=== PATIENT | female | born 1955 | race Caucasian/White ===

== ENCOUNTER 2019-08-09 10:18 | Emergency (ER) | payer MEDICARE, OTHER ==
[~2019-08-09] VITALS: Ht 165.1 cm; Wt 59.1 kg
[~2019-08-09 10:18] MED LIST: DICY10CA59 PO
[2019-08-09 10:56] LABS: BASOPHILS # (AUTO) 0.1 X10'3 (0-0.2); BASOPHILS % (AUTO) 1.4 % (0-1); EOSINOPHILS # (AUTO) 0.3 X10'3 (0-0.9); HEMATOCRIT 41.2 % (35.0-45.0); HEMOGLOBIN 14.2 g/dl (12.0-16.0); LYMPHOCYTES % (AUTO) 38.3 % (21-51); MEAN CORPUSCULAR HGB CONC 34.5 g/dL (33.0-36.5); MEAN CORPUSCULAR VOLUME 98.4 FL (78-98); MEAN PLATELET VOLUME 8.1 FL (7.4-10.4); MONOCYTES % (AUTO) 12.4 % (2-12); NEUTROPHILS # (AUTO) 3.4 X10'3 (1.8-7.7); NEUTROPHILS % (AUTO) 43.9 % (42-75); PLATELET COUNT 265 X10'3 (140-440); RED BLOOD COUNT 4.18 X10'6 (4.20-5.60); RED CELL DISTRIBUTION WIDTH 13.6 % (11.5-14.5); WHITE BLOOD COUNT 7.7 X10'3 (4.5-11.0)
[2019-08-09 11:11] LABS: ALANINE AMINOTRANSFERASE 19 U/L (12-78); ALBUMIN 4.2 G/DL (3.4-5.0); ALBUMIN/GLOBULIN RATIO 1.1 (1.1-1.5); ALKALINE PHOSPHATASE 88 IU/L (46-116); ANION GAP 9 (8-16); ASPARTATE AMINO TRANSFERASE 19 U/L (10-37); BILIRUBIN,TOTAL 0.6 MG/DL (0.1-1.0); BLOOD UREA NITROGEN 11 MG/DL (7-18); BUN/CREATININE RATIO 15.7 (6.6-38.0); CHLORIDE 100 MMOL/L (99-107); GLUCOSE 102 MG/DL (70-104); POTASSIUM 3.6 MMOL/L (3.5-5.1); SODIUM 135 MMOL/L (135-145); TOTAL CARBON DIOXIDE 25.9 MMOL/L (24-32); eGFR 84 ML/MIN
[2019-08-09] MEDS ORDERED: ketorolac trometh. 30mg/ml inj. IV ONE (11:20)
[2019-08-09] MEDS ORDERED: normal saline 1000ml 1,000 ML IV ONE (11:20)
[2019-08-09] MEDS ORDERED: cyclobenzaprine 10mg tablet PO ONE (11:20)
[2019-08-09] MEDS ORDERED: ketorolac tromethamine 15mg/ml inj. IV ONE (11:30)
[2019-08-09] MEDS ORDERED: iohexol 350MG/ML 100ml bottle IV ONE (11:45)
[2019-08-09 12:43] VITALS: BP 179/93
[2019-08-09] MEDS ORDERED: LIDOcaine 5% patch TP SCH (13:00)
== END 2019-08-09 13:27 | disposition home or self-care (01) ==
LOC: ER 10:19
DX: M54.9 Dorsalgia, unspecified (principal); Z90.49 Acquired absence of other specified parts of digestive tract; Z90.710 Acquired absence of both cervix and uterus; Z98.890 Other specified postprocedural states; Z88.0 Allergy status to penicillin; Z88.1 Allergy status to other antibiotic agents; Z79.899 Other long term (current) drug therapy
CPT/HCPCS: 36415; 71045; 71275; 80053; 84484; 85025; 93005; 96374; 99285; J1885; J7030; Q9967

== ENCOUNTER 2021-08-19 17:33 | Emergency (ER) | payer MEDICARE, OTHER ==
[~2021-08-19] VITALS: Ht 165.1 cm; Wt 64.5 kg
[2021-08-19 17:48] VITALS: BP 177/95
== END 2021-08-19 18:12 | disposition home or self-care (01) ==
LOC: ER 17:34
DX: I10 Essential (primary) hypertension (principal); Z90.49 Acquired absence of other specified parts of digestive tract; Z90.710 Acquired absence of both cervix and uterus; Z98.890 Other specified postprocedural states; Z72.89 Other problems related to lifestyle; Z88.0 Allergy status to penicillin; Z88.1 Allergy status to other antibiotic agents; Z79.899 Other long term (current) drug therapy
CPT/HCPCS: 93005; 99283